=== PATIENT | male | born 1990 | race Two or more races ===

== ENCOUNTER 2019-07-20 02:11 | Emergency (ER) | payer OTHER ==
[~2019-07-20] VITALS: Ht 170.2 cm; Wt 68.0 kg
[2019-07-20] MEDS ORDERED: ANUSOL-HC25 MG RECTAL (04:03)
[2019-07-20] MEDS ORDERED: CEFUROXIME500 MG PO (04:04)
== END 2019-07-20 04:15 ==
LOC: ER 02:11
DX: K64.8 Other hemorrhoids (principal)

== ENCOUNTER 2021-11-26 20:05 | Emergency (ER) | payer OTHER ==
[~2021-11-26] VITALS: Ht 170.2 cm; Wt 68.0 kg
[~2021-11-26 20:05] MED LIST: ANUSOL-HC25 MG RECTAL; CEFUROXIME500 MG PO
[2021-11-26] MEDS ORDERED: ZITHROMAX500 MG PO (23:48)
[2021-11-26] MEDS ORDERED: FLONASE ALLERG9.9 ML NASAL (23:48)
[2021-11-26] MEDS ORDERED: ZYRTEC10 M3 PO (23:49)
== END 2021-11-27 00:10 | disposition home or self-care (01) ==
LOC: ER 20:05
DX: J06.9 Acute upper respiratory infection, unspecified (principal); Z20.822 Contact with and (suspected) exposure to COVID-19

== ENCOUNTER 2022-01-31 17:43 | Emergency (ER) | payer OTHER ==
[~2022-01-31] VITALS: Ht 170.2 cm; Wt 68.0 kg
[~2022-01-31 17:43] MED LIST changes: +FLONASE ALLERG9.9 ML NASAL; +ZITHROMAX500 MG PO; +ZYRTEC10 M3 PO
== END 2022-01-31 19:31 | disposition home or self-care (01) ==
LOC: ER 17:43
DX: K62.89 Other specified diseases of anus and rectum (principal)

== ENCOUNTER → 2024-08-21 | Emergency (ER) | payer OTHER ==
[~2024-08-21] VITALS: Ht 170.2 cm; Wt 68.0 kg
[~2024-08-21] MED LIST changes: +BUTALB/ACETAMINOPHEN/CAFFEINE 1 TAB TABLET PO ONE; +CEFTRIAXONE SODIUM 1,000 MG VIAL IM ONE
[2024-08-21 19:10] LABS: BASO % 0.5 % (0.1-1.2); EOS # 0.12 (0.04-0.54); EOS % 1.4 % (0.7-7.0); LYMPH # 2.09 (1.18-3.74); LYMPH % 24.4 % (19.3-53.1); MEAN PLATELET VOLUME 10.30 fl (9.4-12.4); MONO # 0.88 (0.24-0.82); MONO % 10.3 % (4.7-12.5); NEUT # 5.43 (1.56-6.13); NEUT % 63.2 % (34.0-71.1); RED CELL DISTRIBUTION WIDTH 12.1 % (11.6-14.4)
[2024-08-21 19:36] LABS: URINE APPEARANCE Clear; URINE BILIRRUBIN Negative (NEGATIVE); URINE BLOOD Negative; URINE COLOR Yellow; URINE GLUCOSE Negative (NEGATIVE); URINE KETONE Negative (NEGATIVE); URINE LEUKOCYTE Negative; URINE NITRATE Negative; URINE PROTEIN Negative (NEGATIVE); URINE UROBILINOGEN 0.2 E.U./dl
[2024-08-21 19:41] LABS: URINE WBC 3.3 uL (0.0-23.2)
[2024-08-21 19:57] LABS: COVID-19 AG NEGATIVE (NEGATIVE)
[2024-08-21 19:58] LABS: URINE BACTERIA 1.2 uL (0.0-1933); URINE CAST 0.00 uL (0.0-1.40); URINE EPITHELIAL CELLS 0.6 uL (0.0-38.8); URINE RBC 1.7 uL (0.0-20.8)
[2024-08-21 21:30] VITALS: BP 110/75; O2SAT 98
== END | disposition home or self-care (01) ==
LOC: ER 16:43
PROVIDERS: General Practice
DX: R51.9 Headache, unspecified (principal); R30.0 Dysuria; Z20.822 Contact with and (suspected) exposure to COVID-19